=== PATIENT | female | born 1990 | race Caucasian/White ===

== ENCOUNTER 2024-02-17 11:02 | Outpatient (REF) | payer OTHER, SELFPAY ==
[2024-02-17 14:42] LABS: MANUAL DIFF FLAG NO
[2024-02-17 14:44] LABS: Basophils Percent Auto 0.2 % (0-2); Eosinophils Absolute Auto 0.1 X10*3/uL (0.0-0.4); Eosinophils Percent Auto 1.2 % (0-4); Hematocrit 37.3 % (37.0-47.0); Imm Gran Abs Auto 0.02 X10*3/uL (0.00-0.03); Imm Gran Pct Auto 0.2 % (0.0-0.4); Lymphocytes Absolute Auto 2.2 X10*3/uL (1.2-4.9); Lymphocytes Percent Auto 27.1 % (20-40); Mean Corpuscular HGB Conc 32.2 g/dl (31.0-35.0); Mean Corpuscular Volume 86.9 fL (80.0-98.0); Mean Platelet Volume 10.9 fL (9.4-12.3); Monocytes Absolute Auto 0.4 X10*3/uL (0.1-1.2); Monocytes Percent Auto 4.5 % (2-11); Neutrophils Absolute Auto 5.5 x10*3/uL (2.0-8.3); Neutrophils Percent Auto 66.8 % (45-73); Platelet Count 247 X10*3/uL (160-400); Red Blood Count 4.29 X10*6/uL (4.20-5.50); Red Cell Distribution Width 14.1 % (11.0-16.0); White Blood Count 8.2 X10*3/uL (4.8-10.8)
[2024-02-17 14:59] LABS: Estimated Average Glucose 108 mg/dL; Hemoglobin A1C 109.0041 umol/L; Hemoglobin A1c % 5.4 % (<6.0); Total Hemoglobin (HGBA1C) 3104.9632 umol/L
[2024-02-17 15:03] LABS: Alanine Aminotransferase 15 U/L (0-31); Albumin Level 3.8 g/dL (3.5-5.0); Alkaline Phosphatase 101 U/L (39-117); Anion Gap 12 (12-20); Aspartate Amino Transferase 13 U/L (5-31); Bilirubin Direct 0.2 mg/dL (0.0-0.5); Bilirubin Total 0.3 mg/dL (0.0-1.0); Blood Urea Nitrogen 13 mg/dL (9-16); Calcium 9.4 mg/dL (8.4-10.2); Carbon Dioxide 27 mmol/L (22-29); Chloride 104 mmol/L (96-108); Cholesterol 193 mg/dL (<200); Estimated Glomerular Filt Rate > 60; Glucose Fasting 91 mg/dL (60-99); HDL Cholesterol 52 mg/dL (>40); LDL Cholesterol Calculated 115 mg/dL (<100); Potassium 4.2 mmol/L (3.3-5.1); Sodium 139 mmol/L (135-145); Total Protein 7.5 g/dL (6.5-8.0); Triglycerides 131 mg/dL (<150)
[2024-02-17 15:41] LABS: Insulin 13 uU/mL (2-29); TSH reflex Free T4 1.64 uIU/mL (0.32-4.0)
[2024-02-18 09:53] LABS: DHEA Sulfate 188 mcg/dL (19-237)
== END 2024-02-17 11:03 | disposition home or self-care (01) ==
LOC: HO.CHCLDS 11:02
PROVIDERS: Visit Provider Pediatrics
DX: E28.2 Polycystic ovarian syndrome (principal); E66.01 Morbid (severe) obesity due to excess calories
CPT/HCPCS: 36415; 80048; 80061; 80076; 82627; 83036; 83525; 84443; 85025

== ENCOUNTER 2024-10-26 09:39 | Outpatient (REF) | payer MEDICAID, SELFPAY ==
--- OUTSIDE RECORDS SUMMARY | 2024-10-26 10:44 | XMS_ITS | Clinical Summary ---
Author Organization [employer] Address [address] [facility] [address] [place] [address] Care Team Providers Care Mexican Food Maker Name Role Phone Penny Quiñones MD Primary Care Provider [phone] Allergies Active Allergy Reactions Criticality Noted Date Comments Gluten Meal Diarrhea 10/30/2018 Lactose Diarrhea 10/30/2018 Medications * This document contains information received from the source organization and may not represent a complete record from that organization. albuterol 108 (90 Base) MCG/ACT inhaler Inhale 2 puffs every 6 (six) hours if needed for wheezing. 18 g 3 3 Active topiramate (Topamax) 50 MG tablet Take 1 tablet (50 mg) by mouth Once per day. 30 tablet 5 5 Active Marilyn 3-0.02 MG tablet Take 1 tablet by mouth Once per day. 5 Active phentermine 8 MG tablet Take 1 tab in the morning daily 30 tablet 5 Active fluticasone (Flonase) 50 MCG/ACT nasal spray Administer 2 sprays into each nostril Once per day. 16 g 3 5 Active phentermine 15 MG capsule Take 1 capsule (15 mg) by mouth before breakfast. 30 capsule 5 Active hydrOXYzine HCl (Atarax) 25 MG tablet Take 25 mg by mouth at bedtime. 5 Active buPROPion XL (Wellbutrin XL) 150 MG 24 hr tablet Take 150 mg by mouth in the morning. 5 Active naproxen (Naprosyn) 500 MG tablet TAKE 1 TABLET(S) BY ORAL ROUTE , 2 TIMES PER DAY , FOR 30 DAYS , TAKE WITH FOOD Active sertraline (Zoloft) 100 MG tablet Take 1 tablet by mouth Once per day. Active Tirzepatide 2.5 MG/0.5ML solution auto-injectorI ndications:Mor bid obesity (CMS/HCC) Inject 2.5 mg under the skin 1 (one) time per week. 2 mL 2 Active sertraline (Zoloft) 25 MG tablet Take 1 tablet by mouth Once per day. 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 Morbid obesity 06/10/2011 Encounters Date Type Department Care Team Description 10/19/2024 11:30 AM EDT Office Visit [facility] [address] [place] [address] Penny Quiñones MD Morbid obesity (CMS/HCC) (Primary Dx); Bipolar disorder, in full remission, most recent episode mixed (CMS/HCC); Exercise-induced asthma 10/19/2024 Travel 10/18/2024 Telephone [facility] [address] [place] [address] Penny Quiñones MD chart prep 10/12/2024 Travel 07/27/2024 Refill [facility] [address] [place] [address] Penny Quiñones MD 07/27/2024 Telephone [facility] [address] [place], [place] [phone] Penny Quiñones MD Prior Authorization (/) from Last 3 Months Immunizations Immunization Administration Dates Next Due DTaP 06/16/1996, 4,06/08/1992,04/12,03/01/1992 DTaP / HiB / IPV 03/17/1993,199 3,04/12/1992,03/01 HPV, Quadrivalent 05/26/2012 Hep B, Adolescent or Pediatric 01/12/1993,1991,1991 Hep B, adult 01/12/1993,01/07/1992,1991 Hib (PRP-T) 03/17/1993, 3,04/12/1992,03/01 IPV 06/16/1996, 4,04/12/1992,03/01 Influenza Injectable Quadriv alant Preservative Free IIV4 MDCK 03/22/2021 Influenza injectable quadriv alent IIV4 with preservative 10/31/2022 Influenza, IIV3, injectable 02/14/2016 Influenza, seasonal, injecta ble, preservative free 04/20/2024,02/14/2016 MMR 07/02/2020,06/16/1996,03/17/1993 Meningococcal MCV4P ACYW-135 07/01/2006 PPD Test 04/11/2015,03/29/2015,09/24/2011 TD (adult), 2 Lf tetanus tox oid, preservative free, adsorbed 01/28/2002 Td (adult), 5 Lf tetanus tox oid, preservative free, adsorbed 01/28/2002 Td (adult), unspecified 01/28/2002 Tdap 04/24/2020,05/04/2013,09/24/2007 Varicella 03/29/1998 Family History Medical History Relation Name Comments Diabetes Brother Obesity, diabetes Father Thyroid disease Mother Thyroid disease Sister Relation Name Status Comments Brother Alive Father Alive Mother Alive Sister Alive Social History Tobacco Use Types Packs/Day Years Used Date Smoking Tobacco: Former Cigarettes Q uit: 02/24/2019 Passive Smoke Exposure: Past Smokeless Tobacco: Never Tobacco Cessation:Counseling Given: Not Answered Depression Answer Date Recorded Patient Health Questionnaire-9 Score 0 04/20/2024 Patient Health Questionnaire-9 Score 0 04/20/2024 Last PHQ-9: Questionnaire Data Not on file 0 04/20/2024 Housing Stability Answer Date Recorded What is your housing situation today? I have rayna mcgrath 04/20/[address] you li ve. Do you have problems with any of the following? None of the above 04/20/2024 Food Insecurity Answer Date Recorded Within the past 12 months, y ou worried that your food would run out before you got money to buy more: Never True 04/20/2024 Within the past 12 months,th e food you bought just didn't last and you didn't have enough money to get more: Never True Transportation Answer Date Recorded In the past 12 months, has l ack of transportation kept you from medical appts, meetings, work or from getting things needed for daily living? No 04/20/2024 Utilities Answer Date Recorded In the past 12 months, has t he electric, gas, oil or water company threatened to shut off services in your home? No 04/20/2024 Depression Answer Date Recorded Patient Health Questionnaire-2 Score 0 04/20/2024 Internet Access Answer Date Recorded Internet Access Q1 Yes 04/20/2024 Internet Access Q2 Not on file 04/20/2024 Comments No Sex and Gender Information Value Date Recorded Sex Assigned at Female 09/02/2022 9:53 AM EDT Legal Sex Female 9:51 AM EDT Gender Identity Female 09/02/2022 9:53 AM EDT Sexual Orientation Straight 09/02/2022 9: 53 AM EDT Last Filed Vital Signs Vital Sign Reading Time Taken Comments Blood Pressure 116/78 10/19/2024 11:40 AM EDT Pulse 76 10/19/2024 11:40 AM EDT Temperature 37.8 C (100 F) 10/19/2024 11:40 AM EDT Respiratory Rate 20 10/19/2024 11:40 AM EDT Oxygen Saturation 99% 04/20/2024 10:24 AM EST Inhaled Oxygen Concentration - - Weight 140 kg (308 lb) 10/19/2024 11:40 AM EDT Height 168.9 cm (5' 6.5 ) 07/20/2024 11:27 AM ED T Body Mass Index 48.97 07/20/2024 11:27 AM EDT Plan of Treatment Upcoming Encounters Date Type Department Care Team (Late st Contact Info) Description 12/28/2024 11:30 AM EST Office Visit [facility] [address] [place] [address] Penny Quiñones MD [address] [place] [address] Health Maintenance Due Date Last Done Comments HIV Screening 1991 Family Planning (PISQ) 12/02/2006 Hepatitis C Screening 12/02/2009 Pneumococcal Vaccine: Pediatrics (0 to 5 Years) and At-Risk Patients (6 to 49) Years (1 of 2 - PCV) 12/02/2010 HPV Vaccines (2 - 3-dose series) 06/23/2012 05/26/2012 Cervical Cancer Screening 05/01/2024 HPV/Cotest 05/01/2024 Pap Smear 05/01/2024 05/01/2021 COVID-19 Vaccine ( season) 2024 02/23/2022, 03/07/2021, 09/25/2020, Additional history exists Influenza Vaccine (#1) 2024 , 10/31/2022, 03/22/2021, Additional history exists Disability Screening 04/13/2025 04/13/2024 Alcohol/Substance Use Screening 04/20/2025 04/20/2024 Depression Screening 04/20/2025 04/20/2024, 04/20/19 SDOH Screening 04/20/2025 04/20/2024 Tobacco Screening 07/20/2025 07/20/2024 Lipid Panel 02/16/2029 02/17/2024 DTaP/Tdap/Td Vaccines (9 - Td or Tdap) 04/24/2030 04/24/2020, 05/04/2013, 09/24/2007, Additional history exists Zoster Vaccines (1 of 2) 12/02/2041 RSV Patients and Patients Aged 60 years or older (1 - 1-dose 75+ series) 12/02/2066 Hepatitis B Vaccines Completed 01/12/1993, 01/12/1993, 01/07/1992, Additional history exists HIB Vaccines Completed 03/17/1993, 02/25, 06/08/1992, Additional history exists IPV Vaccines Completed 06/16/1996, 04/1993, 03/17/1993, Additional history exists Meningococcal Vaccine Aged Out 07/01/2006 No alka yaron eligible based on patient's age to complete this topic Hepatitis A Vaccines Aged Out No long er eligible based on patient's age to complete this topic Meningococcal B Vaccine Aged Out No l onger eligible based on patient's age to complete this topic RSV under 20 months Aged Out No longe r eligible based on patient's age to complete this topic Rotavirus Vaccines Aged Out No longer eligible based on patient's age to complete this topic Procedures Procedure Name Priority Date/Time Associated Diagnosis Comments LIPID PANEL, STANDARD Routine 02/17/2024 11:18 AM EST PCOS (polycystic ovarian syndrome) Morbid obesity (CMS/HCC) HM PAP/HPV Routine 05/01/2021 from Last 3 Months or Most Recently Relevant to Health Maintenance Results * (ABNORMAL) Lipid Panel, Standard (02/17/2024 11:18 AM EST) Triglycerides 131 <150 mg/dL [facility] Comment:Desirable Triglyceri de: less than 150 mg/dLBorderline High Triglyceride 150-199 mg/dLHigh Triglyceride: 200-499 mg/dLVery High Triglyceride: greater than or equal to 5OO mg/dL Cholesterol 193 <200 mg/dL [facility] Comment:Desirable Cholestero l: less than 200 mg/dLBorderline High Cholesterol: 200-239 mg/dLHigh Cholesterol: greater than 239 mg/dL LDL Cholesterol Calculated 115(H) <100 mg/dL [facility] Comment:Desirable LDL: less than 100 mg/dLNear Optimal/Above Optimal LDL: 110- 129 mg/dLBorderline High LDL: 130-159 mg/dLHigh LDL: 160-189 mg/dLVery High LDL: greater than or equal to 190 mg/dL HDL Cholesterol 52 >40 mg/dL [facility] Comment:Desirable HDL: great er than 40 mg/dL Note: This HDL assay may give artificially low results in patients with liver disease. Blood Venous blood specimen / Unknown 02/17/2024 11:18 AM EST 02/17/2024 2:25 PM EST Penny Quiñones MD LAB BLOOD ORDERABLES Final Re sult [facility] [address] [place] [address] [phone] * Pap Smear (05/01/2021) Pap Negative for intraephithelial lesion or malignancy Negative for intraephithelial lesion or malignancy, Other Historical Provider HEALTH MAINTENANCE Final Result from Last 3 Months or Most Recently Relevant to Health Maintenance Insurance Care Teams Mexican Food Maker Relationship Specialty Start Date End Date Penny Quiñones MD [address] [place] [id number] PCP - General Internal Medicine 10/31/22
--- OUTSIDE RECORDS SUMMARY | 2024-10-26 10:44 | XMS_ITS | Encounter Summary ---
Author Organization [employer] Address [address] [place] [address] [address] [place] [address] Care Team Providers Care Senior Librarian Name Role Phone Penny Quiñones MD Primary Care Provider [phone] Reason for Visit * Reason Onset Date Comments New Patient Appt 09/25/2022 Encounter Details Date Type Department Care Team ([facility] st Contact Info) Description 09/25/2022 Telephone [facility] [address] [place], [place] [phone] George Cooley MD [address] [place] [address] New Patient Appt Social History Tobacco Use Types Packs/Day Years Used Date Smoking Tobacco: Never Assessed Comments Unknown Sex and Gender Information Value Date Recorded Sex Assigned at Female 09/02/2022 9:53 AM EDT Legal Sex Female 9:51 AM EDT Gender Identity Female 09/02/2022 9:53 AM EDT Sexual Orientation Straight 09/02/2022 9: 53 AM EDT documented as of this encounter Miscellaneous Notes * Telephone Encounter - Denis Azevedo - 09/25/2022 9:20 AM EDT PAR Denis Reyes called pt to Offer [employer] appt. Pt demographics and insurance information were verified. Pt reports no medical conditions. Pt is not taking any medication at this time. Pt given [employer] appt with Dr. Quiñones on 10/31/2022 @ 9:30 am. Pt will be sent appt reminder card and medical release form and agrees to complete and to return to medical records prior to [employer] appt. documented in this encounter Plan of Treatment Upcoming Encounters Date Type Department Care Team (Late st Contact Info) Description 12/28/2024 11:30 AM EST Office Visit [facility] [address] [place] [address] Penny Quiñones MD [address] [place] [address] documented as of this encounter Visit Diagnoses Not on filedocumented in this encounter Care Teams Senior Librarian Relationship Specialty Start Date End Date Penny Quiñones MD [address] [place] [address] PCP - General Internal Medicine 10/31/22 documented as of this encounter
[2024-10-26 14:32] LABS: MANUAL DIFF FLAG NO
[2024-10-26 14:34] LABS: Hematocrit 35.8 % (37.0-47.0); Hemoglobin 11.4 g/dl (12.0-16.0); Imm Gran Abs Auto 0.02 X10*3/uL (0.00-0.03); Imm Gran Pct Auto 0.3 % (0.0-0.4); Lymphocytes Absolute Auto 2.0 X10*3/uL (1.2-4.9); Mean Corpuscular HGB Conc 31.8 g/dl (31.0-35.0); Mean Corpuscular Hemoglobin 27.2 pg (27.0-33.0); Mean Corpuscular Volume 85.4 fL (80.0-98.0); NRBC Abs Auto 0.000 X10*3/uL (0.0-0.012); NRBC Pct Auto 0.0 /100WBC (0.0-0.2); Platelet Count 253 X10*3/uL (160-400); Red Blood Count 4.19 X10*6/uL (4.20-5.50); White Blood Count 7.3 X10*3/uL (4.8-10.8)
[2024-10-26 14:48] LABS: Hemoglobin A1C 108.4963 umol/L; Total Hemoglobin (HGBA1C) 2965.6652 umol/L
[2024-10-26 15:05] LABS: Alanine Aminotransferase 13 U/L (0-31); Albumin Level 3.8 g/dL (3.5-5.0); Alkaline Phosphatase 126 U/L (39-117); Anion Gap 13 (12-20); Aspartate Amino Transferase 11 U/L (5-31); Blood Urea Nitrogen 12 mg/dL (9-16); Calcium 8.8 mg/dL (8.4-10.2); Carbon Dioxide 23 mmol/L (22-29); Chloride 108 mmol/L (96-108); Cholesterol 201 mg/dL (<200); Estimated Glomerular Filt Rate > 60; HDL Cholesterol 53 mg/dL (>40); Potassium 4.0 mmol/L (3.3-5.1); Sodium 140 mmol/L (135-145); Total Protein 7.0 g/dL (6.5-8.0); Triglycerides 159 mg/dL (<150)
== END 2024-10-26 09:40 | disposition home or self-care (01) ==
LOC: HO.CHCLDS 09:39
PROVIDERS: Visit Provider Pediatrics
DX: E66.01 Morbid (severe) obesity due to excess calories (principal)
CPT/HCPCS: 36415; 80053; 80061; 82306; 83036; 84443; 85025